=== PATIENT | male | born 1965 | race Caucasian/White ===

== ENCOUNTER → 2016-12-13 | Outpatient (CLI) | payer BC ==
[~2016-12-13] MED LIST: AMARYL PO; AMLODIPINE BESYL5 MG PO; ASPIR-TRIN325 M1 PO; CABERGOLINE0.5 MG PO; CLOPIDOGREL PO; CRESTOR40 MG PO; DEPO-TESTOS200 MG/M1 IM; GLUCOPHAGE PO; LOPRESSOR100 M1 PO; NITROSTAT0.4 M1 SL; NORVASC 5MG5 MG/TAB PO; ZESTRIL40 M1 PO
[2016-12-13 10:10] VITALS: BP 159/96
== END ==
LOC: AMSURD 09:33
DX: Z00.00 Encounter for general adult medical examination without abnormal findings (principal); I25.10 Atherosclerotic heart disease of native coronary artery without angina pectoris

== ENCOUNTER → 2020-08-19 | Outpatient (CLI) | payer BC ==
[2016-12-13 10:10] VITALS: BP 159/96
== END ==
LOC: LAB 13:35
DX: R50.9 Fever, unspecified (principal); R09.81 Nasal congestion; Z20.828 Contact with and (suspected) exposure to other viral communicable diseases

== ENCOUNTER → 2021-04-04 | Outpatient (REF) ==
[2016-12-13 10:10] VITALS: BP 159/96
== END ==
LOC: LAB 09:56
DX: E11.65 Type 2 diabetes mellitus with hyperglycemia (principal); I25.119 Atherosclerotic heart disease of native coronary artery with unspecified angina pectoris; E23.0 Hypopituitarism

== ENCOUNTER → 2021-07-24 | Outpatient (REF) | LOC: LAB 11:08 | DX: E11.65 Type 2 diabetes mellitus with hyperglycemia (principal) ==

== ENCOUNTER → 2024-01-07 | Outpatient (CLI) | payer BC | LOC: RAD 10:52 | DX: D35.2 Benign neoplasm of pituitary gland (principal) ==